=== PATIENT | female | born 1980 | race Caucasian/White ===

== ENCOUNTER → 2018-04-11 13:46 | Outpatient (CLI) | payer MEDICAID, OTHER ==
--- NOTE | ~2018-04-11 | ST ---
PATIENT:EVON ALVAREZ MEDICAL RECORD: [id number] SEX: F LOCATION:[facility] ORDER #: ADMISSION DATE: 04/11/18 AGE OF PATIENT: 37 REFERRING PHYSICIAN: INTERPRETING PHYSICIAN: ANGELES LEON MD TREADMILL STRESS TEST DATE OF SERVICE: 04/11/2018 REFERRING PHYSICIAN: Jeremy Shields MD DESCRIPTION: Baseline electrocardiogram is normal. The patient exercised for 8 minutes via Hammad protocol. The maximum heart rate was 184 beats per minute which was greater than 100% of maximum predicted. No electrocardiographic changes of ischemia. No symptoms of ischemia. Normal blood pressure response to exercise. Fair exercise tolerance for age. IMPRESSION: Negative treadmill stress test. Fair exercise tolerance. ANGELES LEON MD CC: MILVIA SHIELDS [id number] DICTATION DATE: 04/26/18 CLIENT SERVICES SPECIALIST: SEBAS 04/28/18 1247 DEP CLI 04/11/18 [id number] [place] [address]
== END | disposition home or self-care (01) ==
LOC: D.HCCARDIO 13:46
DX: R00.0 Tachycardia, unspecified (principal)

== ENCOUNTER → 2020-03-01 13:55 | Outpatient (CLI) | payer MEDICAID ==
--- NOTE | ~2020-03-01 | EC ---
PATIENT:EVON ALVAREZ DATE OF SERVICE: 03/01/20 SEX: F MEDICAL RECORD: [id number] DATE OF : 80 LOCATION:[facility] AGE OF PATIENT: 39 ADMISSION DATE: 03/01/20 REFERRING PHYSICIAN: INTERPRETING PHYSICIAN: ANGELES LEON MD ECHOCARDIOGRAM REPORT ECHO CHARGES 4 ECHO COMPLETE Date: 03/01/20 CLINICAL DIAGNOSIS: HX OF PVC'S AND PALPITATIONS ASSESS EF AND VALVES ECHOCARDIOGRAPHIC MEASUREMENTS (adult normal given) AC root (d.<3.7cm) 2.6 cm LV Septum d (<1.2 cm> 1.4 cm Valve Excursion 1.5 cm LV Septum (systole) 1.6 cm Left Atria (s.<4.0cm> 3.0 cm LVPW d(<1.2cm) 1.4 cm RV (d.<2.3cm) 2.9 cm LVPW (sytole) 1.6 cm LV diastole(<5.6CM) 3.7 cm MV E-F(>70mm/sec) cm LV systole 2.3 cm LVOT Diameter 1.8 cm MV exc.(>10mm) 1.4 cm Est.ejection fraction (50-75%) % DOPPLER: LVIT cm/sec A 57.0 cm/sec E 69.0 cm/sec LA cm/sec RVSP 24 mmHg LVOT 92 cm/sec AOP1/2T m/s Asc. 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 Mc TAPE# PACS Pericardial Effusion N DATE OF SERVICE: Adequate 2D, color flow imaging, spectral Doppler, and M-Mode. Mild LVH. LV internal dimensions are normal. Wall motions are normal. EF greater than or equal to 55%. Aortic valve is tricuspid. No evidence of stenosis by Doppler interrogation. Left atrium is normal. Mitral valve shows no prolapse. Trace MR. Right-sided chambers are grossly normal. Trace TR. NTS:[id number] Voice Confirmation ID: [id number] DOCUMENT ID: [id number] ECHOCARDIOGRAM REPORT [id number] EVON ALVAREZ GREGORY A MD CC: [id number] DICTATION DATE: 03/04/201108 LABEL SEWER: 03/04/202038 DEP CLI 03/01/20 [id number] [place] [id number]
== END | disposition home or self-care (01) ==
LOC: D.HCCECHO 13:55
PROVIDERS: ATTEND Internal Medicine Interventional Cardiology
DX: I49.3 Ventricular premature depolarization (principal)